=== PATIENT | female | born 1990 | race Caucasian/White ===

== ENCOUNTER 2016-09-15 13:49 | Outpatient (CLI) | payer BC, MEDICAID | END 2016-09-15 13:50 | disposition home or self-care (01) | DX: Z01.89 Encounter for other specified special examinations (principal); Z86.19 Personal history of other infectious and parasitic diseases ==

== ENCOUNTER → 2017-05-13 | Outpatient (CLI) | payer MEDICAID | LOC: LAB.N 08:00 | PROVIDERS: ATTEND Nurse Practitioner Gerontology | DX: Z20.2 Contact with and (suspected) exposure to infections with a predominantly sexual mode of transmission (principal) | CPT/HCPCS: 36415; 86803 ==

== ENCOUNTER 2017-06-21 15:27 | Outpatient (CLI) | payer MEDICAID ==
[2017-06-21 13:20] LABS: BASOPHILS % (AUTO) 0.4 %; EOSINOPHILS # (AUTO) 0.1 10^3/uL (0.0-0.7); EOSINOPHILS % (AUTO) 0.8 %; HCT - HEMATOCRIT 41.6 % (37.0-47.0); HGB - HEMOGLOBIN 14.3 g/dL (12.0-16.0); LYMPHOCYTES # (AUTO) 3.2 10^3/uL (1.5-3.5); LYMPHOCYTES % (AUTO) 37.3 %; MEAN CORPUSCULAR HEMOGLOBIN 29.8 pg (27.0-31.0); MEAN CORPUSCULAR HGB CONC 34.4 g/dL (32.0-36.0); MEAN CORPUSCULAR VOLUME 86.7 fL (81.0-99.0); MEAN PLATELET VOLUME 9.3 fL (7.9-10.8); MONOCYTES # (AUTO) 0.5 10^3/uL (0.0-1.0); MONOCYTES % (AUTO) 6.4 %; NEUTROPHILS # (AUTO) 4.6 10^3/uL (1.5-6.6); NEUTROPHILS % (AUTO) 55.1 %; RED CELL DISTRIBUTION WIDTH 12.1 % (12.0-15.0); UNCORRECTED WHITE BLOOD COUNT 8.4 x10^3/uL; WHITE BLOOD COUNT 8.4 x10^3/uL (4.8-10.8)
[2017-06-21 13:37] LABS: ALBUMIN/GLOBULIN RATIO 1.5 (1.0-2.2); BILIRUBIN,TOTAL 0.8 mg/dL (0.2-1.0); BUN - BLOOD UREA NITROGEN 10 mg/dL (6-20); CALCIUM 9.5 mg/dL (8.5-10.3); CARBON DIOXIDE - CO2 25 mmol/L (21-32); CHLORIDE 103 mmol/L (101-111); CHOLESTEROL 222 mg/dL; CREATININE 0.5 mg/dL (0.4-1.0); GFR - MDRD 148 (>89); GLUCOSE 114 mg/dL (70-100); HDL CHOLESTEROL 37 mg/dL; LDL/HDL RATIO 3.8 (<4.4); SODIUM 137 mmol/L (135-145); TOTAL PROTEIN 7.8 g/dL (6.7-8.2); TRIGLYCERIDES 223 mg/dL; VLDL CHOLESTEROL 45 mg/dL
== END 2017-06-21 15:28 | disposition home or self-care (01) ==
LOC: LAB.N 15:27
PROVIDERS: ATTEND Nurse Practitioner Gerontology
DX: Z13.9 Encounter for screening, unspecified (principal); Z20.2 Contact with and (suspected) exposure to infections with a predominantly sexual mode of transmission
CPT/HCPCS: 36415; 80050; 80061; 86780; 87389; 87491; 87591

== ENCOUNTER 2017-12-28 15:58 | Outpatient (CLI) | payer MEDICAID | END 2017-12-28 15:59 | disposition home or self-care (01) | LOC: LAB.R 15:58 | PROVIDERS: ATTEND Registered Nurse | DX: Z11.3 Encounter for screening for infections with a predominantly sexual mode of transmission (principal) | CPT/HCPCS: 87491; 87591 ==

== ENCOUNTER 2018-01-04 19:49 | Outpatient (CLI) | payer MEDICAID ==
--- NOTE | 2018-01-05 09:33 | Ultrasound Report ---
PELVIC ULTRASOUND: 01/04/2018 CLINICAL INDICATION: Check IUD. TECHNIQUE: Transabdominal pelvic ultrasound performed for global evaluation. Transvaginal pelvic ultrasound performed for detailed evaluation. Real-time scanning performed and static images obtained. FINDINGS: The uterus is anteverted, measuring 9.3 x 5.6 x 3.9 cm. The endometrium measures 6 mm. An IUD is noted in the endometrial canal. No focal myometrial lesion is seen. The ovaries are normal, with the right measuring 3.8 x 1.8 x 1.7 cm and the left measuring 3.2 x 2.6 x 1.6 cm. No free fluid is present. IMPRESSION: NORMAL PELVIC ULTRASOUND. IUD IN THE ENDOMETRIAL CANAL. TD: 01/05/2018 09:32
== END 2018-01-04 19:50 | disposition home or self-care (01) ==
LOC: DI 19:49
PROVIDERS: ATTEND Registered Nurse
DX: T83.32XA Displacement of intrauterine contraceptive device, initial encounter (principal)
CPT/HCPCS: 76830; 76856

== ENCOUNTER 2018-03-30 11:27 | Outpatient (CLI) | payer MEDICAID | END 2018-03-30 11:28 | disposition home or self-care (01) | LOC: LAB.N 11:27 | PROVIDERS: ATTEND Nurse Practitioner Gerontology | DX: Z13.9 Encounter for screening, unspecified (principal) | CPT/HCPCS: 36415; 86317; 86787 ==

== ENCOUNTER 2018-07-25 08:00 | Outpatient (CLI) | payer MEDICAID | END 2018-07-25 08:01 | disposition home or self-care (01) | LOC: LAB.R 08:00 | PROVIDERS: ATTEND Registered Nurse | DX: N76.0 Acute vaginitis (principal) | CPT/HCPCS: 87491; 87591 ==

== ENCOUNTER 2019-01-23 08:00 | Outpatient (CLI) | payer MEDICAID ==
[2019-01-23 21:05] LABS: CANDIDA GROUP DNA NEGATIVE (NEGATIVE); CANDIDA KRUSEI DNA NEGATIVE (NEGATIVE); TRICHOMONAS VAGINALIS DNA NEGATIVE (NEGATIVE)
== END 2019-01-23 23:59 | disposition home or self-care (01) ==
LOC: LAB.R 08:00
PROVIDERS: ATTEND Registered Nurse
DX: N76.0 Acute vaginitis (principal)
CPT/HCPCS: 87480; 87510; 87660; 87661; 87801